=== PATIENT | female | born 1965 | race Two or more races ===

== ENCOUNTER 2023-12-04 05:00 | Day surgery (SDC) | payer OTHER ==
[2023-11-28 08:28] LABS: URINE APPEARANCE Clear; URINE BILIRRUBIN Negative (NEGATIVE); URINE BLOOD Negative; URINE COLOR Yellow; URINE GLUCOSE Negative (NEGATIVE); URINE KETONE Negative (NEGATIVE); URINE LEUKOCYTE Negative; URINE NITRATE Negative; URINE PROTEIN Negative (NEGATIVE); URINE UROBILINOGEN 0.2 E.U./dl
[2023-11-28 08:31] LABS: URINE BACTERIA 1005.4 uL (0.0-1933); URINE EPITHELIAL CELLS 10.3 uL (0.0-38.8); URINE RBC 12.6 uL (0.0-20.8); URINE WBC 15.7 uL (0.0-23.2)
[2023-11-28 08:37] LABS: URINE CAST 0.45 uL (0.0-1.40)
[2023-11-28 08:41] LABS: HEMATOCRIT 40.5 % (36.0-45.00); HEMOGLOBIN 13.7 g/dL (12.0-15.00); MEAN CELL VOLUME 91.4 fL (80.00-100.00); MEAN CORPUSCULAR HEMOGLOBIN 30.9 pg (27.00-32.0); MEAN CORPUSCULAR HGB CONC 33.8 g/dl (32.0-36.0); PLATELET COUNT 275 K/uL (150-450); RED BLOOD COUNT 4.44 M/uL (4.00-6.00); RED CELL DISTRIBUTION WIDTH 14.4 % (11.5-14.5)
[2023-11-28 08:52] LABS: INR 1.02; PARTIAL THROMBOPLASTIN TIME 31.7 SECONDS (22.0-34.0); PROTHROMBIN TIME 11.1 SECONDS (9.0-11.5)
[2023-11-28 08:59] LABS: ALBUMIN 3.8 gm/dL (3.4-5.0); BILIRUBIN TOTAL 0.43 mg/dL (0.3-1.2); CALCIUM 9.2 mg/dL (8.5-10.1); CREATININE SERUM 0.68 mg/dL (0.55-1.02); GFR 89.5; GLOBULINA 3.7 G/DL (2.4-3.5); POTASSIUM 4.57 mEq/L (3.5-5.1); TOTAL PROTEIN 7.5 gm/dL (6.4-8.2)
[~2023-12-04 05:00] MED LIST: ROSUVASTATIN CA10 MG
[2023-12-04] MEDS ORDERED: DOXYCYCLINE HYCLATE 100MG IV ONE (06:30)
[2023-12-04] MEDS ORDERED: POVIDONE-IODINE 118 ML BOTT TOP ONE (07:08)
[2023-12-04] MEDS ORDERED: MORGIDOX100 MG PO (08:54)
[2023-12-04] MEDS ORDERED: IBU600 MG PO (08:54)
[2023-12-04] MEDS ORDERED: ONDANSETRON HCL 2 MG/ML VIAL ONE (09:57)
== END 2023-12-04 12:00 | disposition home or self-care (01) ==
LOC: CIR.AMB 05:00
PROVIDERS: ATTEND Obstetrics & Gynecology
DX: N84.0 Polyp of corpus uteri (principal); D25.0 Submucous leiomyoma of uterus; N95.0 Postmenopausal bleeding; Z88.0 Allergy status to penicillin; M19.90 Unspecified osteoarthritis, unspecified site